=== PATIENT | male | born 1970 ===

== ENCOUNTER 2021-07-28 15:13 | Emergency (ER) | payer SELFPAY ==
[~2021-07-28] VITALS: Ht 167 cm; Wt 74.8 kg
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
[2021-07-28 15:45] LABS: BASOPHILS # (AUTO) 0.1 10^3/uL (0.0-0.1); BASOPHILS % (AUTO) 2 % (0-10); EOSINOPHILS # (AUTO) 0.3 10^3/uL (0.0-0.3); EOSINOPHILS % (AUTO) 5 % (0-10); HEMATOCRIT 33 % (40-54); HEMOGLOBIN 10.3 g/dL (13.3-17.7); LYMPHOCYTES # (AUTO) 1.7 10^3/uL (1.0-4.0); LYMPHOCYTES % (AUTO) 29 % (12-44); MEAN CORPUSCULAR HEMOGLOBIN 26 pg (25-34); MEAN CORPUSCULAR HGB CONC 32 g/dL (32-36); MEAN CORPUSCULAR VOLUME 82 fL (80-99); MEAN PLATELET VOLUME 10.7 fL (9.0-12.2); MONOCYTES # (AUTO) 0.4 10^3/uL (0.0-1.0); MONOCYTES % (AUTO) 7 % (0-12); NEUTROPHILS # (AUTO) 3.4 10^3/uL (1.8-7.8); NEUTROPHILS % (AUTO) 57 % (42-75); PLATELET COUNT 341 10^3/uL (130-400); WHITE BLOOD COUNT 5.9 10^3/uL (4.3-11.0)
[2021-07-28] MEDS ORDERED: LACTATED RINGERS 1,000 ML IV ONE (15:45)
[2021-07-28] MEDS ORDERED: TETANUS,DIPTH,PERTUSS P/F (BOOSTRIX) 0.5 ML VIAL IM ONE (15:45)
[2021-07-28 15:58] LABS: ALBUMIN 4.2 GM/DL (3.2-4.5); POTASSIUM 3.8 MMOL/L (3.6-5.0)
[2021-07-28 15:59] LABS: CALCIUM 9.2 MG/DL (8.5-10.1)
[2021-07-28 16:00] LABS: TOTAL PROTEIN 7.4 GM/DL (6.4-8.2)
[2021-07-28 16:02] LABS: BILIRUBIN,TOTAL 0.3 MG/DL (0.1-1.0)
[2021-07-28 16:04] LABS: CREATININE SERUM 0.98 MG/DL (0.60-1.30)
[2021-07-28] MEDS ORDERED: NS 100 ML (IVPB) BAG IV ONE (16:15)
[2021-07-28] MEDS ORDERED: IOHEXOL 350 MG/ML 100 ML (OMNIPAQUE 350) VIAL IV ONE (16:15)
[2021-07-28] MEDS ORDERED: HOLD METFORMIN - RECEIVED CONTRAST 20 ML VIAL IV SCH (16:15)
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
--- NOTE | 2021-07-28 16:51 | Diagnostic Imaging Report ---
EXAMINATION: Right hand radiograph. EXAM DATE: 07/28/2021. COMPARISON: None available. HISTORY: Right hand pain. TECHNIQUE: 3 views of the right hand. FINDINGS: There is no acute fracture, dislocation, or destructive osseous process. Well-corticated appearance of the ulnar styloid likely secondary to chronic avulsion or congenital variant. The joint spaces are normal. The soft tissues are normal. No suspicious radiopaque foreign body. IMPRESSION: No acute osseous abnormality or radiopaque foreign body within the right hand. Dictated by: Dictated on workstation # [id number]
--- NOTE | 2021-07-28 16:52 | Diagnostic Imaging Report ---
EXAMINATION: Right forearm radiographs, 2 views. COMPARISON: None. HISTORY: 50-year-old male, right forearm injury and pain. FINDINGS: There is a chronic appearing fracture deformity of the ulnar styloid. There is a questionable oblique lucency at the level of the distal radial metaphysis extending towards the articulating surface which may reflect a nondisplaced intra-articular fracture. There is no otherwise identified potential fracture. There is no identified radiopaque foreign body. IMPRESSION: 1. Questionable nondisplaced intra-articular fracture of the distal radius. No additional identified potential acute fracture. 2. Chronic appearing fracture of the ulnar styloid. Dictated by: Dictated on workstation # [id number]
[2021-07-28 16:58] VITALS: BP 98/57
== END 2021-07-28 16:58 | disposition home or self-care (01) ==
LOC: ER 15:15
DX: S52.501A Unspecified fracture of the lower end of right radius, initial encounter for closed fracture (principal); S01.81XA Laceration without foreign body of other part of head, initial encounter; F10.129 Alcohol abuse with intoxication, unspecified; Z23 Encounter for immunization; W01.0XXA Fall on same level from slipping, tripping and stumbling without subsequent striking against object, initial encounter
CPT/HCPCS: 12011; 70450; 70486; 72125; 73090; 73130; 74177; 80053; 85025; 99284; G0480; 36415; 80320; 90715